=== PATIENT | female | born 1945 | race Caucasian/White ===

== ENCOUNTER 2019-11-23 21:34 | Inpatient (IN) | payer OTHER ==
[~2019-11-23] VITALS: Ht 160 cm; Wt 50.8 kg
[2019-11-23 23:25] VITALS: BP 169/100
[2019-11-24] VITALS (10 sets, daily range): BP systolic 115–170; BP diastolic 52–78
--- NOTE | 2019-11-24 00:42 | NUR ---
PT ARRIVED AT APPROXIMATELY 2330 FROM [facility] IN A STABLE CONDITION. PT IS ALERT AND ORIENTED X4. RATES PAIN LEVEL AT A 1. PT IS STEADY ON HER FEET, AND ABLE TO MAKE HER NEEDS KNOWN. UPON COMPLETION OF THE ADMISSION HISTORY AND ASSESSMENT. DR BURRELL WAS NOTIFIED ABOUT THE PT'S ADMIT AND RESULT OF CT AND ORDERS NOTED TO TX PT TO CCU, APPLY NC AT 2L, AND CONSULT IR FOR CHEST TUBE PLACEMENT IN THE AM 11/24/2019. REPORT GIVEN TO CCU NURSE. PT TX WITH ALL PERSONAL BELONGINGS TO ROOM 203.
[2019-11-24] MEDS ORDERED: NORVASC5 M1 PO (00:58)
[2019-11-24] MEDS ORDERED: PROAIR HFA8.5 GM INH (01:01)
[2019-11-24] MEDS ORDERED: BREO ELLIPTA 11 EACH INH (01:02)
[2019-11-24] MEDS ORDERED: ATIVAN0.5 M1 PO (01:05)
--- NOTE | 2019-11-24 01:58 | NUR ---
PT TRANSFERRED FROM AT AROUND 0045 VIA A WHEELCAHIR, PT IS AWAKE, ALERT AND ORIENTEDX4, PLEASANT, MAKES NEEDS KNOWN, SR ON THE MONITOR, VSS, 02SAT AT 94% ON ROOM AIR, REFUSED OXYGEN, DENIES CHEST PAIN OR SOB, REQUESTING FOOD, RESTING IN BED AT THIS TIME, NO DISTRESS NOTED, WILL CONTINUE TO MONITOR
[2019-11-24 06:38] LABS: CALCIUM 11.6 mg/dL (8.5-10.1); CREATININE 0.8 mg/dL (0.6-1.0); MAGNESIUM 2.1 mg/dL (1.8-2.4); POTASSIUM 4.3 mmol/L (3.5-5.1)
[2019-11-24 06:44] LABS: ABSOLUTE NEUTROPHILS 3.3 thou/uL (1.4-8.2); BASOPHILS 0.7 % (0.0-2.0); EOSINOPHILS 2.6 % (0.0-3.0); HEMATOCRIT 43.8 % (37.0-47.0); HEMOGLOBIN 14.6 gm/dL (12.0-15.0); LYMPHOCYTES 29.8 % (24.0-44.0); MCH 32.9 pg (26.0-34.0); MCHC 33.4 g/dL (28.0-37.0); MCV 98.6 fL (80.0-100.0); MONOCYTES 9.6 % (1.0-8.0); PLATELET COUNT 211 thou/uL (150-400); POLYS 57.3 % (36.0-66.0); RBC 4.44 mil/uL (4.20-5.00); RDW 13.2 % (10.5-14.5); WBC 5.7 thou/uL (4.0-11.0)
--- NOTE | 2019-11-24 06:55 | NUR ---
PT REMAINED STABLE THROUGH THE NIGHT, REMAINED NPO, DENIES CHEST PAIN OR SOB, ASSESSMENTS CHARTED, WILL PASS ON REPORT
[2019-11-24 07:36] LABS: CALCIUM 11.7 mg/dL (8.5-10.1); CREATININE 0.8 mg/dL (0.6-1.0); PHOSPHORUS 3.2 mg/dL (2.5-4.9)
--- NOTE | 2019-11-24 08:33 | EKG ---
[facility] [place] [address] ELECTROCARDIOGRAM REPORT Name: BOO BRAVO Room #: 203-P ADM IN M.R.#: [id number] Admission: 11/23/19 Attend Phys: Radha Higgins MD Discharge: Date of : 47 Report #: [id number] THIS REPORT FOR: cc: MATEUS - Kristal family physician/PCP FAM - No family physician/PCP Andre Farnsworth MD ~ THIS REPORT FOR: //name// [facility] Test Date: 2019-11-24 Test Time: 07:50:25 Pat Name: BOO BRAVO Department: Room: 203 Gender: F Truck Driver Supervisor: MAGUE : [id number] Requested By: Shanta Montejo Order Number: [id number] MD: Andre Farnsworth Measurements Intervals [place] Rate: 72 P: 78 CT: 153 QRS: 69 QRSD: 89 T: 89 QT: 353 QTc: 387 Interpretive Statements Sinus rhythm No previous ECG available for comparison Electronically Signed On 11-24-2019 8:32:21 CDT by Andre Farnsworth [email or web address] <ELECTRONICALLY SIGNED> By: Andre Farnsworth MD 11/24/19 0832 9 9 Andre Farnsworth MD /BOB
--- NOTE | 2019-11-24 10:05 | NUR ---
chart review. unable to visit with jonas at this time. cm called pt son shirin, intro to cm, dcp and transition of care. " no have long, at work and you might just want to call [facility] to get question answered, i live upstairs and she lives down stair in house. she independent, no medical equip. she manage own medication, she still drives. call any time if it is critical"/francheska carpio. will cont following as needed for dc needs.
[2019-11-24 12:17] LABS: APTT 25.9 Seconds (24.5-32.8); PROTIME 10.2 Seconds (9.3-11.4)
--- NOTE | 2019-11-24 18:33 | NUR ---
PT CARE ASSUMED AT 0700. ASSESSMENTS CHARTED. MEDICATIONS CHARTED. PT NPO MOST OF THE DAY. CHEST TUBE BY IR APPROXIMATELY 1300. WALL SUCTION AT 120 TO PLEURVAC BOX. MINIMAL DRAINAGE AT THIS TIME. PT ADVISED TO REST AND STAY MOTIONLESS; PT IS VERY ANTSY.
[2019-11-25] VITALS (7 sets, daily range): BP systolic 132–139; BP diastolic 51–66
--- NOTE | 2019-11-25 04:27 | NUR ---
ASSUMED PT CARE AT AROUND 1900, PT IS AWAKE, ALERT AND ORIENTEDX4, MAKES NEEDS KNOWN, SR ON THE MONITOR, ASSESSMENTS CHARTED, DENIES CHEST PAIN OR SOA, C/O PAIN, MEDICATED PRN WITH PARTIAL RELIEF, RESTED WELL, WILL CONTINUETO MONITOR
[2019-11-25 05:47] LABS: CALCIUM 10.6 mg/dL (8.5-10.1); CREATININE 0.9 mg/dL (0.6-1.0); POTASSIUM 4.3 mmol/L (3.5-5.1)
--- NOTE | 2019-11-25 19:53 | NUR ---
PT CARE ASSUMED AT 0700. ASSESSMENTS CHARTED. MEDICATIONS CHARTED. PT IRRITATED BY THE PRESENCE OF HER CHEST TUBE. SBA. VSS. PT DENIES PAIN.
[2019-11-26 04:15] VITALS: BP 121/73
--- NOTE | 2019-11-26 05:44 | NUR ---
PT A&O X4 ABLE TO MAKE BASIC NEEDS KNOWN. C/O BACK PAIN X1 AT HS EFFECTIVELY CONTROLLED VIA PRN PAIN MEDS. PT HAS A CT WITH MINIMAL OP. NO NEW ACUTE FINDINGS SO FAR THIS SHIFT
[2019-11-26 07:17] VITALS: BP 136/67
[2019-11-26 12:07] VITALS: BP 144/77
[2019-11-26] MEDS ORDERED: PROAIR HFA8.5 GM INH (12:49)
[2019-11-26] MEDS ORDERED: LEVAQUIN 500 M500 M1 PO (12:49)
[2019-11-26 16:25] VITALS: BP 126/57
--- NOTE | 2019-11-26 16:53 | NUR ---
ASSESSMENT DOCUMENTED. PT ALERT AND ORIENTED. VSS. CHEST TUBE PATENT TO WATER SEAL. SEEN BY DR. MANRIQUEZ AND DR. BURRELL. ORDERS NOTED. NO RESPIRATORY DISTRESS NOTED. WILL CONTINUE TO MONITOR.
[2019-11-26 19:45] VITALS: BP 116/52
[2019-11-27 04:45] VITALS: BP 129/51
--- NOTE | 2019-11-27 05:54 | NUR ---
PT IS ALERT AND ORIENTED X4. LUNGS ARE CLEAR TO DIMINISHED. ON ROOM AIR. ABDOMEN IS SOFT AND FLAT BOWEL SOUNDS ACTIVE X4. UP TO BEDSIDE COMMODE. NO DRAINAGE TO CHEST TUBE TO WATER SEAL. PT WANTING IT PULLED AND TO GO HOME. INSTRUCTED PT HAVE TO WAIT FOR PHYSICAN TO SEE PT THIS AM. NO COMPLAINTS OF PAIN THIS AM. PT LEFT DRESSING IS DRY INTACT WITH DRESSING AND CHEST TUBE ON LEFT SIDE. COUGHS AND DEEP BREATHES AND USES INCENTIVE SPIROMETERY. WILL CONTINUE TO ASSESS AND MONTIOR PER NURSING
[2019-11-27 07:30] VITALS: BP 171/83
[2019-11-27 12:00] VITALS: BP 134/63
[2019-11-27 14:03] VITALS: BP 134/63
--- NOTE | 2019-11-27 15:01 | NUR ---
ASSESSMENT CHARTED. PT ALERT AND ORIENTED. VSS. DENIED HAVING PAIN OR DISCOMFORT. CHEST TUBE PULLED BY DR. BURRELL. NO RESPIRATORY DISTRESS NOTED. ORDERS GIVEN TO DISCHARGE PT TO HOME. DISCHARGE INSTRUCTION GIVEN TO PT. PT VERBERLISED UNDERSTANDING.
== END 2019-11-27 15:16 | disposition home or self-care (01) | DRG 199 ==
LOC: 4S 21:34 → 2N 23:42 → 4S 23:42 → 2N 11-24 00:30
PROVIDERS: Internal Medicine Pulmonary Disease; Nurse Practitioner Family; Radiology Vascular & Interventional Radiology; ADMIT Hospitalist; ATTEND Hospitalist
PROC: 0W9B30Z Drainage of Left Pleural Cavity with Drainage Device, Percutaneous Approach (ICD-10-PCS; principal; 2019-11-24)
PROC: BB13ZZZ Fluoroscopy of Left Lung (ICD-10-PCS; principal; 2019-11-24)
DX: J93.9 Pneumothorax, unspecified (principal); E43 Unspecified severe protein-calorie malnutrition; Z68.1 Body mass index [BMI] 19.9 or less, adult; F41.9 Anxiety disorder, unspecified; E78.5 Hyperlipidemia, unspecified; I10 Essential (primary) hypertension; F32.9 Major depressive disorder, single episode, unspecified; F17.210 Nicotine dependence, cigarettes, uncomplicated; J43.9 Emphysema, unspecified; R39.15 Urgency of urination; G47.00 Insomnia, unspecified; E21.3 Hyperparathyroidism, unspecified; Z90.49 Acquired absence of other specified parts of digestive tract; Z79.899 Other long term (current) drug therapy; Z79.51 Long term (current) use of inhaled steroids; Z80.2 Family history of malignant neoplasm of other respiratory and intrathoracic organs; Z80.8 Family history of malignant neoplasm of other organs or systems
CPT/HCPCS: 10081; 10102

== ENCOUNTER → 2020-01-30 | Outpatient (CLI) | payer OTHER ==
[~2020-01-30] MED LIST: ATIVAN0.5 M1 PO; BREO ELLIPTA 11 EACH INH; LEVAQUIN 500 M500 M1 PO; NORVASC5 M1 PO; PROAIR HFA8.5 GM INH
== END ==
LOC: SJCVCIMAG 09:44
PROVIDERS: ATTEND Nuclear Medicine Nuclear Cardiology
DX: I65.23 Occlusion and stenosis of bilateral carotid arteries (principal); H34.9 Unspecified retinal vascular occlusion; I73.9 Peripheral vascular disease, unspecified; I10 Essential (primary) hypertension; J44.9 Chronic obstructive pulmonary disease, unspecified; F17.200 Nicotine dependence, unspecified, uncomplicated; Z79.899 Other long term (current) drug therapy